=== PATIENT | female | born 1970 | race Caucasian/White ===

== ENCOUNTER 2019-06-19 07:20 | Outpatient (CLI) | payer OTHER ==
[~2019-06-19 07:20] MED LIST: ACETAZOLAMIDE125 MG PO; ALIGN4 MG; BACLOFEN20 MG PO; BTREX PO; BUDESONIDE EC3 MG; CYMBALTA30 MG PO; ELAVIL PO; ESTAZOLAM1 MG; EVOXAC30 MG PO; FLUOCINOLON118.28 M1; FOLIC ACID1 MG PO; LACTAID3000 UNI1; LOPERAMIDE2 M1; LOSARTAN POTAS100 MG; MEDROL4 MG; METHOTREXATE25 MG/ML; NEURONTIN300 MG PO; NORVASC5 MG PO; ORPH100T PO; PERCOCET 5/321 UDTAB PO; PLAQUENIL PO; PLAVIX75 MG; PROTONIX40 MG; RESTASIS32 EA; SINGULAIR10 MG PO; SYMAX DUOT0.375 MG/B; SYNTHROID112 MCG; SYNTHROID137 MCG; SYSTANE GEL EYE10 ML; TOPROL XL25 MG; TROMBONEX CAPSU1 CAP PO; VALTREX1000 MG PO; VITAMIN B3 PO; VITAMIN D31000 UNI1 PO; XYZAL5 MG PO; ZANTAC300 MG; [UNRECOGNIZED DRUG - OTHER] PO
== END 2019-06-19 07:32 | disposition home or self-care (01) ==
LOC: NUCLEAR 07:20
DX: E83.52 Hypercalcemia (principal); N18.2 Chronic kidney disease, stage 2 (mild)
CPT/HCPCS: 78072; A9500

== ENCOUNTER 2019-06-26 07:32 | Outpatient (CLI) | payer OTHER | END 2019-06-26 08:25 | disposition home or self-care (01) | LOC: NUCLEAR 07:32 | DX: M50.80 Other cervical disc disorders, unspecified cervical region (principal); M79.7 Fibromyalgia; M60.89 Other myositis, multiple sites; M17.10 Unilateral primary osteoarthritis, unspecified knee; M51.36 Other intervertebral disc degeneration, lumbar region; M70.60 Trochanteric bursitis, unspecified hip; M06.89 Other specified rheumatoid arthritis, multiple sites; M35.00 Sjogren syndrome, unspecified | CPT/HCPCS: 78315; A9503 ==